=== PATIENT | female | born 1980 | race American Indian/Alaskan Native ===

== ENCOUNTER 2021-04-09 17:05 | Emergency (ER) | payer SELFPAY ==
[2021-04-09 18:02] VITALS: BP 138/97
[2021-04-09 18:54] LABS: Bacteria,Urine 1+ /HPF (Negative); Bilirubin,Urine NEG (Negative); Blood,Urine NEG (Negative); Color,Urine Yellow (Yellow); Protein,Urine <15 mg/dL mg/dL (Negative)
[2021-04-09 19:00] LABS: Amphetamine Screen,Urine Negative; Benzodiazepines Screen,Urine Negative; Methadone Screen,Urine Negative; Opiate Screen,Urine Negative
[2021-04-09 19:12] LABS: Cannabinoid Screen,Urine Positive; Cocaine Screen,Urine Positive
== END 2021-04-09 19:30 | disposition left against medical advice (07) ==
LOC: ED 17:05
DX: F32.9 Major depressive disorder, single episode, unspecified (principal); Z53.21 Procedure and treatment not carried out due to patient leaving prior to being seen by health care provider
CPT/HCPCS: 80307; 81001

== ENCOUNTER 2021-04-11 17:40 | Emergency (ER) | payer SELFPAY | END 2021-04-12 01:17 | disposition left against medical advice (07) | LOC: ED 17:40 | DX: Z00.00 Encounter for general adult medical examination without abnormal findings (principal); Z53.21 Procedure and treatment not carried out due to patient leaving prior to being seen by health care provider ==